=== PATIENT | female | born 1985 | race Caucasian/White ===

== ENCOUNTER 2017-11-19 19:17 | Emergency (ER) | payer BC ==
[~2017-11-19] VITALS: Ht 157.5 cm; Wt 61.9 kg
[~2017-11-19 19:17] MED LIST: BREAST PUMP MC; ENDOCET 5-3251 EACH PO; IBUPROFEN800 MG PO; NEXIUM20 MG PO; OMEGA-3 + VITA1 EAC2 PO; PRENATAL TABLE1 EACH PO; VITAMIN C100 MG PO
[2017-11-19 19:53] LABS: HEMATOCRIT 34.1 % (36.0-46.0); HEMOGLOBIN 12.3 G/DL (11.9-15.5); MCH 31.1 PG (29.0-34.0); MCHC 36.1 G/DL (30.0-36.0); MCV 86.3 FL (83-99); PLATELET COUNT 151 K/uL (156-360); RBC DIS.WIDTH-CV 11.8 % (11.8-14.6); RBC DIS.WIDTH-SD 37.2 % (39-53); RED BLOOD COUNT 3.95 M/uL (3.80-5.20)
[2017-11-19 20:05] LABS: ALBUMIN 4.3 g/dL (3.2-4.8); CHLORIDE 102 mEq/L (99-109); POTASSIUM 3.6 mEq/L (3.7-5.4); SODIUM 133 mEq/L (136-147)
[2017-11-19 20:08] LABS: GLUCOSE 112 mg/dL (70-99); TOTAL PROTEIN 7.3 g/dL (6.4-8.3)
[2017-11-19 20:09] LABS: TOTAL BILIRUBIN 0.3 mg/dL (0.0-1.0)
[2017-11-19 20:10] LABS: APPEARANCE CLOUDY ((CLEAR)); BILIRUBIN NEGATIVE; BLOOD SMALL; COLOR YELLOW ((YELLOW)); GLUCOSE (STRIP) 50; KETONES 5; LEUKOCYTES SMALL; NITRITE NEGATIVE; PROTEIN (STRIP) 30; SPECIFIC GRAVITY 1.025 (1.000-1.030)
[2017-11-19 20:11] LABS: ALKALINE PHOSPHATASE 48 IU/L (3-129); CREATININE 0.7 mg/dL (0.6-1.3); GFR ESTIMATE (CALCULATED) > 59 mL/min/
[2017-11-19 20:12] LABS: UREA NITROGEN (BUN) 10 mg/dL (9-23)
[2017-11-19 20:13] LABS: AST (GOT) 14 IU/L (2-34); DIRECT BILIRUBIN 0.2 mg/dL (0.0-0.3)
[2017-11-19 20:14] LABS: ALT (GPT) 12 IU/L (3-49)
[2017-11-19 20:15] LABS: LIPASE 21 U/L (1.0-51.0)
[2017-11-19 20:37] LABS: QUANTITATIVE HCG 97644.7 MIU/ML
[2017-11-19 20:56] LABS: BACTERIA 2+ /HPF; EPITHELIAL CELLS 3+ /HPF; MUCUS NONE SEEN /LPF; UCUL ADDED? YES
[2017-11-19] MEDS ORDERED: PERCOCET 5/31 TABLET PO (21:16)
[2017-11-19] MEDS ORDERED: KEFLEX500 MG PO (21:16)
[2017-11-19] MEDS ORDERED: ZOFRAN ODT4 MG PO (21:16)
[2017-11-19 21:36] VITALS: BP 126/69
== END 2017-11-19 21:39 | disposition home or self-care (01) ==
LOC: EME 19:17
PROVIDERS: Physician Assistant
DX: O26.891 Other specified pregnancy related conditions, first trimester (principal); N20.1 Calculus of ureter; Z3A.08 8 weeks gestation of pregnancy; Z87.442 Personal history of urinary calculi; Z88.0 Allergy status to penicillin
CPT/HCPCS: 76705; 76770; 76775; 76801; 80048; 80076; 81003; 83690; 84702; 85027; 87086; 99281; 99284

== ENCOUNTER → 2018-04-09 | Outpatient (CLI) | payer BC ==
[~2018-04-09] VITALS: Ht 158.8 cm; Wt 67.2 kg
[~2018-04-09] MED LIST changes: +KEFLEX500 MG PO; +PERCOCET 5/31 TABLET PO; +ZOFRAN ODT4 MG PO
[2018-04-09 09:23] VITALS: BP 122/63
== END | disposition home or self-care (01) ==
LOC: IVINF 09:19
DX: Z34.83 Encounter for supervision of other normal pregnancy, third trimester (principal); Z31.82 Encounter for Rh incompatibility status; Z3A.28 28 weeks gestation of pregnancy; Z67.91 Unspecified blood type, Rh negative
CPT/HCPCS: 96372; J2790